=== PATIENT | female | born 1960 | race Caucasian/White ===

== ENCOUNTER 2018-04-26 09:12 | Day surgery (SDC) | payer MEDICARE ==
[~2018-04-26] VITALS: Ht 152.4 cm; Wt 73.4 kg
[~2018-04-26 09:12] MED LIST: ALLO300T PO; AMLO5TAB4 PO; CIPR500T87 PO; ESTR0.5G PO; ESTR30CR VG; FERR325T63 PO; FLUC200T PO; FOLI-17 PO; FURO-92 PO; GABA300C10 PO; HYDR-3240 PO; LEVO250T23 PO; LEVO75CA2 PO; LINE600T37 PO; LISI-167 PO; LISI40TA PO; METH500T97 PO; MORP100C16 PO; MORP15TA PO; NITR100C PO; OMEP40CA6 PO; ONDA4TAB13 PO; PANT40TA5 PO; POTA20TA14 PO; PROM25TA10 PO
[2018-04-26] MEDS ORDERED: SODIUM CHLORIDE 0.9% 1,000 ML IV SCH (09:58)
[2018-04-26 10:37] VITALS: BP 154/80
[2018-04-26] MEDS ORDERED: AMLO5TAB2 PO (10:44)
[2018-04-26] MEDS ORDERED: ROPI0.5T2 PO (10:44)
[2018-04-26] MEDS ORDERED: CHOL20002 PO (10:44)
[2018-04-26] MEDS ORDERED: ALLO100T30 PO (10:44)
[2018-04-26] MEDS ORDERED: GABA300C10 PO (10:44)
[2018-04-26 11:02] LABS: INTERNATIONAL NORMALIZED RATIO 0.86 (0.93-1.1); PROTHROMBIN TIME 8.9 Seconds (9.6-11.5)
[2018-04-26] MEDS ORDERED: MIDAZOLAM 1 MG/ML, 5ML ONE ×2 (12:06)
[2018-04-26] MEDS ORDERED: FENTANYL PF 100 MCG/2ML ONE (12:06)
[2018-04-26] MEDS ORDERED: FLUMAZENIL 0.1 MG/1 ML, 5ML ONE (12:06)
[2018-04-26] MEDS ORDERED: NALOXONE 1 MG/ML, 2ML ONE (12:06)
== END 2018-04-26 13:55 ==
LOC: OUT 09:12
PROVIDERS: ATTEND Surgery
DX: I12.9 Hypertensive chronic kidney disease with stage 1 through stage 4 chronic kidney disease, or unspecified chronic kidney disease (principal); M10.9 Gout, unspecified; Z88.1 Allergy status to other antibiotic agents; Z88.8 Allergy status to other drugs, medicaments and biological substances; Z98.890 Other specified postprocedural states
CPT/HCPCS: 36415; 50200; 77012; 85610; 88300; 99156; J2250; J3010; 99157; J2310

== ENCOUNTER 2019-01-05 09:35 | Inpatient (IN) | payer MEDICARE, OTHER ==
[~2019-01-05] VITALS: Ht 152.4 cm; Wt 78.6 kg
[~2019-01-05 09:35] MED LIST changes: +ALLO100T30 PO; +AMLO-150 PO; +CHOL200052 PO; +ROPI0.5T2 PO
--- NOTE | 2019-01-05 09:52 | NUR ---
PT. ARRIVES BY [facility] WITH C/O SOB X 1 WEEK. PT. HAS EXSP. WHEEZES NOTE. RA SAT IS 88%. PT.'S 12 LEAD EKG WAS DONE. PT. HAS THE CP MONITOR IN PLACE. RT PHONED. PT. IS PINK, WARM AND DRY. PT. HAS 02 ON AT 4 LITERS PER NASAL CANNULA. PT. HAS AN AUDIBLE MURMUR NOTED WITH AUSCULATATION. PT. IS RESTING WITH THE HOB ELEVATED GREATER THAN 30 DEGREES. SIDERAILS REMAIN UP X 2 WITH THE CALL LIGHT IN PLACE.
--- NOTE | 2019-01-05 10:30 | NUR ---
RECEIVED REPORT FROM DEXTER Wilkes RN. PT RESTING IN [facility] IN [facility].
[2019-01-05] MEDS ORDERED: ALBUTEROL/IPRATROPIUM 2.5MG/0.5MG, 3 ML ONE (11:13)
--- NOTE | 2019-01-05 11:29 | NUR ---
PT GIVEN WATER. 3 P'S ADDRESSED. RT AT BEDSIDE.
[2019-01-05 12:17] LABS: RAPID INFLUENZA A Negative (Negative); RAPID INFLUENZA B Negative (Negative)
[2019-01-05] MEDS ORDERED: MORP15TA PO (12:41)
[2019-01-05] MEDS ORDERED: LOSA50TA14 PO (12:41)
[2019-01-05] MEDS ORDERED: MAGNESIUM PO (12:41)
[2019-01-05] MEDS ORDERED: GABA100C PO (12:41)
[2019-01-05] MEDS ORDERED: AMLO10TA8 PO (12:41)
[2019-01-05] MEDS ORDERED: FURO40TA6 PO (12:41)
--- NOTE | 2019-01-05 12:54 | NUR ---
REPORT TO MARISA SOORIO.
[2019-01-05 13:53] LABS: ANION GAP 6 mmol/L (5-15); CALCIUM 9.1 mg/dL (8.5-10.1); CHLORIDE 106 mmol/L (98-107); CREATININE 2.34 mg/dL (0.55-1.02)
--- NOTE | 2019-01-05 13:57 | NUR ---
pt resting nadn waiting on room
[2019-01-05] MEDS ORDERED: PROMETHAZINE 25 MG/ML, 1ML IM PRN (15:00)
[2019-01-05] MEDS ORDERED: LABETALOL 5MG/ML, 20ML IVPush PRN (15:00)
[2019-01-05] MEDS ORDERED: ONDANSETRON 2MG/ML, 2ML IVPush PRN (15:00)
[2019-01-05 15:08] LABS: D-DIMER 0.52 ug/mlFEU (0.00-0.52); INTERNATIONAL NORMALIZED RATIO 0.91 (0.93-1.1); PROTHROMBIN TIME 9.6 Seconds (9.6-11.5)
[2019-01-05 15:09] LABS: FREE T4 (FREE THYROXINE) 1.07 ng/dL (0.76-1.46); TROPONIN I < 0.015 ng/mL (0.000-0.045)
[2019-01-05] MEDS: GUAIFENESIN 200 MG TABLET PO SCH ×2 (17:38→20:00)
[2019-01-05] MEDS: HEPARIN 5,000 UNITS/ML, 1ML SQ SCH ×2 (17:38→23:00)
[2019-01-05] MEDS: GABAPENTIN 100 MG CAPSULE PO SCH ×2 (17:38→20:00)
[2019-01-05] MEDS: SODIUM CHLORIDE 0.9% 1,000 ML IV SCH ×3 (17:38→22:58)
[2019-01-05] MEDS: CEFTRIAXONE PMX 1GM/50ML 50 ML IV SCH (17:39)
[2019-01-05] MEDS: AZITHROMYCIN 500 MG in SODIUM CHLORIDE 0.9% 250 ML IV SCH (18:48)
[2019-01-05 19:30] VITALS: BP 137/75
[2019-01-05 21:11] LABS: TROPONIN I < 0.015 ng/mL (0.000-0.045)
[2019-01-06 02:53] VITALS: BP 160/72
[2019-01-06 05:43] LABS: BASOPHILS # (AUTO) 0.02 x10^3/uL (0-0.1); BASOPHILS % (AUTO) 0 % (0-1); EOSINOPHILS # (AUTO) 0.04 x10^3/uL (0-0.4); EOSINOPHILS % (AUTO) 1 % (1-7); LYMPHOCYTES # (AUTO) 0.95 x10^3/uL (1-3.4); LYMPHOCYTES % (AUTO) 13 % (22-44); MD NO; MEAN CORPUSCULAR HGB CONC 31.9 g/dL (32.4-35.8); MEAN PLATELET VOLUME 6.3 fL (7.4-10.4); MONOCYTES # (AUTO) 0.44 x10^3/uL (0.2-0.8); MONOCYTES % (AUTO) 6 % (2-9); NEUTROPHILS % (AUTO) 80 % (42-75); PLATELET COUNT 202 x10^3/uL (130-400); RED BLOOD COUNT 3.35 x10^6/uL (3.82-5.3); RED CELL DISTRIBUTION WIDTH 14.7 % (9.6-15.2)
[2019-01-06 05:59] LABS: ANION GAP 5 mmol/L (5-15); CALCIUM 8.6 mg/dL (8.5-10.1); CHLORIDE 114 mmol/L (98-107)
[2019-01-06] MEDS: GUAIFENESIN 200 MG TABLET PO SCH ×4 (06:02→20:12)
[2019-01-06 06:10] LABS: ALANINE AMINOTRANSFERASE 17 U/L (12-78); ALBUMIN 2.4 g/dL (3.4-5.0); ALKALINE PHOSPHATASE 160 U/L (45-117); BILIRUBIN,TOTAL 0.4 mg/dL (0.2-1.0); CREATININE 2.16 mg/dL (0.55-1.02); TOTAL PROTEIN 5.6 g/dL (6.4-8.2)
[2019-01-06] MEDS: HEPARIN 5,000 UNITS/ML, 1ML SQ SCH (07:00)
[2019-01-06 08:00] VITALS: BP 125/72
[2019-01-06] MEDS: AMLODIPINE 10 MG TAB PO SCH (08:48)
[2019-01-06] MEDS: ACETAMINOPHEN 325 MG TABLET PO PRN (08:48)
[2019-01-06] MEDS: LOSARTAN 50MG TABLET PO SCH ×2 (08:48→20:13)
[2019-01-06] MEDS: CHOLECALCIFEROL 1,000 UNIT TABLET PO SCH (08:48)
[2019-01-06] MEDS: GABAPENTIN 100 MG CAPSULE PO SCH ×3 (08:48→20:13)
[2019-01-06] MEDS: OMEPRAZOLE 20 MG CAPSULE.DR PO SCH (08:48)
[2019-01-06] MEDS: FUROSEMIDE 40 MG TABLET PO SCH (08:48)
[2019-01-06] MEDS: AZITHROMYCIN 500 MG in SODIUM CHLORIDE 0.9% 250 ML IV SCH (15:22)
[2019-01-06 15:41] VITALS: BP 129/74
[2019-01-06] MEDS: CEFTRIAXONE PMX 1GM/50ML 50 ML IV SCH (16:52)
[2019-01-06 19:01] VITALS: BP 150/71
[2019-01-06] MEDS: APIXABAN 5 MG TABLET PO SCH (20:13)
[2019-01-07 01:02] VITALS: BP 130/71
[2019-01-07] MEDS: ACETAMINOPHEN 325 MG TABLET PO PRN (01:23)
[2019-01-07 04:30] LABS: BASOPHILS % (AUTO) 0 % (0-1); EOSINOPHILS % (AUTO) 0 % (1-7); LYMPHOCYTES # (AUTO) 0.97 x10^3/uL (1-3.4); LYMPHOCYTES % (AUTO) 14 % (22-44); MD NO; MEAN CORPUSCULAR HGB CONC 31.9 g/dL (32.4-35.8); MEAN CORPUSCULAR VOLUME 93.9 fL (80-100); MEAN PLATELET VOLUME 6.6 fL (7.4-10.4); MONOCYTES # (AUTO) 0.24 x10^3/uL (0.2-0.8); MONOCYTES % (AUTO) 4 % (2-9); NEUTROPHILS # (AUTO) 5.56 x10^3/uL (1.8-6.8); NEUTROPHILS % (AUTO) 82 % (42-75); PLATELET COUNT 203 x10^3/uL (130-400); RED BLOOD COUNT 3.68 x10^6/uL (3.82-5.3); RED CELL DISTRIBUTION WIDTH 14.4 % (9.6-15.2)
[2019-01-07 04:41] LABS: ALBUMIN 2.5 g/dL (3.4-5.0); ANION GAP 6 mmol/L (5-15); CALCIUM 9.1 mg/dL (8.5-10.1); CHLORIDE 112 mmol/L (98-107)
[2019-01-07 04:47] LABS: ALANINE AMINOTRANSFERASE 18 U/L (12-78); ALKALINE PHOSPHATASE 161 U/L (45-117); BILIRUBIN,TOTAL 0.2 mg/dL (0.2-1.0); CREATININE 2.12 mg/dL (0.55-1.02); TOTAL PROTEIN 6.2 g/dL (6.4-8.2)
[2019-01-07] MEDS: GUAIFENESIN 200 MG TABLET PO SCH ×4 (06:23→21:08)
[2019-01-07 08:30] VITALS: BP 132/74
[2019-01-07] MEDS: GABAPENTIN 100 MG CAPSULE PO SCH ×3 (08:55→21:07)
[2019-01-07] MEDS: DOXYCYCLINE 100MG TABLET PO SCH ×2 (08:56→21:08)
[2019-01-07] MEDS: FUROSEMIDE 40 MG TABLET PO SCH (08:56)
[2019-01-07] MEDS: OMEPRAZOLE 20 MG CAPSULE.DR PO SCH (08:57)
[2019-01-07] MEDS: APIXABAN 5 MG TABLET PO SCH ×2 (08:57→21:08)
[2019-01-07] MEDS: AMLODIPINE 10 MG TAB PO SCH (08:58)
[2019-01-07] MEDS: AMOXICILLIN/CLAV 875-125MG TABLET PO SCH ×2 (08:58→21:07)
[2019-01-07] MEDS: CHOLECALCIFEROL 1,000 UNIT TABLET PO SCH (08:58)
[2019-01-07] MEDS: LOSARTAN 50MG TABLET PO SCH ×2 (09:01→21:08)
[2019-01-07 13:15] VITALS: BP 146/78
[2019-01-07 18:43] VITALS: BP 136/67
[2019-01-08 01:34] VITALS: BP 135/73
[2019-01-08 04:20] LABS: ALBUMIN 2.6 g/dL (3.4-5.0); ANION GAP 4 mmol/L (5-15); BASOPHILS # (AUTO) 0.03 x10^3/uL (0-0.1); BASOPHILS % (AUTO) 0 % (0-1); CALCIUM 9.1 mg/dL (8.5-10.1); CHLORIDE 113 mmol/L (98-107); EOSINOPHILS # (AUTO) 0.06 x10^3/uL (0-0.4); EOSINOPHILS % (AUTO) 1 % (1-7); LYMPHOCYTES # (AUTO) 1.45 x10^3/uL (1-3.4); LYMPHOCYTES % (AUTO) 16 % (22-44); MD NO; MEAN CORPUSCULAR HEMOGLOBIN 30.6 pg (27.0-34.8); MEAN CORPUSCULAR HGB CONC 32.8 g/dL (32.4-35.8); MEAN CORPUSCULAR VOLUME 93.1 fL (80-100); MEAN PLATELET VOLUME 6.4 fL (7.4-10.4); MONOCYTES # (AUTO) 0.35 x10^3/uL (0.2-0.8); MONOCYTES % (AUTO) 4 % (2-9); NEUTROPHILS % (AUTO) 79 % (42-75); PLATELET COUNT 232 x10^3/uL (130-400); RED BLOOD COUNT 3.77 x10^6/uL (3.82-5.3); RED CELL DISTRIBUTION WIDTH 14.3 % (9.6-15.2)
[2019-01-08 04:23] LABS: ALANINE AMINOTRANSFERASE 19 U/L (12-78); ALKALINE PHOSPHATASE 141 U/L (45-117); BILIRUBIN,TOTAL 0.4 mg/dL (0.2-1.0); CREATININE 2.04 mg/dL (0.55-1.02); TOTAL PROTEIN 6.2 g/dL (6.4-8.2)
[2019-01-08] MEDS: GUAIFENESIN 200 MG TABLET PO SCH ×2 (06:31→10:14)
[2019-01-08 07:42] VITALS: BP 128/75
[2019-01-08] MEDS: CHOLECALCIFEROL 1,000 UNIT TABLET PO SCH (08:02)
[2019-01-08] MEDS: APIXABAN 5 MG TABLET PO SCH (08:02)
[2019-01-08] MEDS: AMOXICILLIN/CLAV 875-125MG TABLET PO SCH (08:02)
[2019-01-08] MEDS: DOXYCYCLINE 100MG TABLET PO SCH (08:02)
[2019-01-08] MEDS: GABAPENTIN 100 MG CAPSULE PO SCH (08:02)
[2019-01-08] MEDS: AMLODIPINE 10 MG TAB PO SCH (08:02)
[2019-01-08] MEDS: LOSARTAN 50MG TABLET PO SCH (08:03)
[2019-01-08] MEDS: OMEPRAZOLE 20 MG CAPSULE.DR PO SCH (08:03)
[2019-01-08] MEDS: FUROSEMIDE 40 MG TABLET PO SCH (08:03)
[2019-01-08] MEDS ORDERED: APIX2.5T PO (11:54)
[2019-01-08] MEDS ORDERED: METH4TAB2 PO (11:54)
== END 2019-01-08 13:34 | disposition home or self-care (01) | DRG 871 ==
LOC: ED 11:37 → EDIP 14:42 → 4WST 15:38
PROVIDERS: ADMIT Colon & Rectal Surgery; ATTEND Hospitalist
DX: A41.9 Sepsis, unspecified organism (principal); J18.9 Pneumonia, unspecified organism; J96.01 Acute respiratory failure with hypoxia; E43 Unspecified severe protein-calorie malnutrition; N18.4 Chronic kidney disease, stage 4 (severe); I48.92 Unspecified atrial flutter; E87.1 Hypo-osmolality and hyponatremia; E78.5 Hyperlipidemia, unspecified; I12.9 Hypertensive chronic kidney disease with stage 1 through stage 4 chronic kidney disease, or unspecified chronic kidney disease; G89.4 Chronic pain syndrome; E03.9 Hypothyroidism, unspecified; J98.01 Acute bronchospasm; M10.9 Gout, unspecified; D63.8 Anemia in other chronic diseases classified elsewhere; Z86.14 Personal history of Methicillin resistant Staphylococcus aureus infection; Z83.3 Family history of diabetes mellitus; Z90.710 Acquired absence of both cervix and uterus; Z93.3 Colostomy status; Z93.6 Other artificial openings of urinary tract status; Z82.49 Family history of ischemic heart disease and other diseases of the circulatory system; Z68.33 Body mass index [BMI] 33.0-33.9, adult
CPT/HCPCS: 36415; 71045; 80048; 80053; 83605; 83735; 84145; 84439; 84443; 84484; 85025; 85379; 85610; 86140; 87040; 87205; 87400; 93005; 93306; 99285; G0378; J0456; J0696; J2405; J7030; J7050; J7512